=== PATIENT | female | born 1965 | race Caucasian/White ===

== ENCOUNTER 2023-02-15 06:17 | Day surgery (SDC) | payer MEDICAID ==
[~2023-02-15] VITALS: Ht 157.5 cm; Wt 74.4 kg
[2023-02-15] MEDS ORDERED: MEPERIDINE 100 MG INJ. 100 MG/ML VIAL ONE (07:29)
[2023-02-15] MEDS ORDERED: MIDAZOLAM HCL 5 MG/5 ML VIAL ONE (07:30)
[2023-02-15 07:33] VITALS: O2SAT 97
[2023-02-15 11:40] VITALS: BP_SYST 125; PULSE 78; RESP 16
== END 2023-02-15 09:26 | disposition home or self-care (01) ==
LOC: SDS 06:17 → SMU 06:18 → SDS 09:26
PROVIDERS: ATTEND Internal Medicine Gastroenterology
DX: R19.4 Change in bowel habit (principal); K64.8 Other hemorrhoids; Z80.0 Family history of malignant neoplasm of digestive organs; E78.5 Hyperlipidemia, unspecified; Z79.899 Other long term (current) drug therapy
CPT/HCPCS: 45378; 99152; G0378; J2250; J2175